=== PATIENT | female | born 1965 | race Caucasian/White ===

== ENCOUNTER 2022-09-25 18:34 | Observation (INO) | payer OTHER, SELFPAY ==
--- NOTE | ~2022-09-25 | CT_ITS ---
EXAMINATION: CT HEAD WITHOUT CONTRAST CLINICAL INFORMATION: Dizziness COMPARISON: None TECHNIQUE: Imaging was performed from the skull base to vertex without intravenous administration of contrast. This CT examination was performed using dose optimization techniques as appropriate, variously including the following: *Automated exposure control *Adjustment of mA and/or kV according to patient size (this includes techniques or standardized protocols for targeted exams where dose is matched to indication/reason for exam; i.e. extremities or head) *Use of iterative reconstruction technique Total exam dose length product: 571 mGy-cm FINDINGS: No intra or extra-axial fluid collection, hemorrhage, or mass. No ventriculomegaly. No midline shift or herniation. Basal cisterns are patent. Becker-white matter differentiation is maintained. No territorial encephalomalacia. No significant volume loss. There is no abnormal attenuation within the brain parenchyma. No calvarial fracture or soft tissue abnormality. The mastoid air cells and visualized portions of the paranasal sinuses are well aerated. CT/CT head/brain wo IV con IMPRESSION: 1. No acute intracranial pathology.
--- NOTE | ~2022-09-25 | CT_ITS ---
EXAMINATION: CT ANGIOGRAM HEAD CT ANGIOGRAM NECK CLINICAL INFORMATION: Reason for Exam dizziness, difficulty finding words COMPARISON: Same day noncontrast head CT TECHNIQUE: Initial noncontrast authorization representative imaging of the head and neck was performed. Noncontrast head CT was also performed. Test bolus sequences followed by intravenous administration 70 mL of Omnipaque 350. Helical imaging was performed in the axial plane from the aortic arch to the skull vertex. Delayed postcontrast imaging of the head was also performed. The data was processed at the marketing technologist's workstation for generation of MIP sequences. Angled MIPs and volume rendered reformatted images were also generated at an offline 3D workstation. Stenoses are assessed in accordance with NASCET criteria unless otherwise indicated. DLP: 1417 mGy-cm This CT examination was performed using dose optimization techniques as appropriate, variously including the following: *Automated exposure control. *Adjustment of mA and/or kV according to patient size (this includes techniques or standardized protocols for targeted exams where dose is matched to indication/reason for exam; i.e. extremities or head). *Use of iterative reconstruction technique. FINDINGS: CT Head: There is no evidence of acute intracranial hemorrhage or edematous territorial infarction. There is no abnormal attenuation within the brain parenchyma. Becker-white matter differentiation is preserved. The ventricles are normal in size and configuration. No evidence for obstructive hydrocephalus. No abnormal mass effect or midline shift. No extra-axial fluid collections. No pathologic intra-axial enhancement or regional oligemia. No acute soft tissue or osseous abnormalities. Small maxillary sinus mucous retention cysts. CT Neck: The thyroid gland and remaining cervical soft tissues are within normal limits. Mild multilevel cervical spondylosis CT Upper Chest: The visualized lung apices and upper mediastinum are within normal limits. Neck CTA: Aortic Arch: Normal contour and caliber. Classic 3 vessel branching pattern of the aortic arch. Great Vessel Origins: No significant stenosis of the branch origins. Right Common Carotid Artery: No focal stenosis or occlusion. Cervical Right Internal Carotid Artery: Normal opacification without focal stenosis or occlusion. Left Common Carotid Artery: No focal stenosis or occlusion. Cervical Left Internal Carotid Artery: Mild calcific atherosclerotic disease of the carotid bulb and proximal internal carotid artery without flow-limiting stenosis. Cervical Right Vertebral Artery: No focal stenosis or occlusion. Cervical Left Vertebral Artery: No focal stenosis or occlusion. Brain CTA: CTA of the head is somewhat technically limited secondary to extensive venous contamination. Intracranial Internal Carotid Arteries: No focal stenosis or occlusion. Right Anterior Cerebral Artery: Normal A1 segment. Normal opacification of the distal BENJAMIN segments. Left Anterior Cerebral Artery: Normal A1 segment. Normal opacification of the distal BENJAMIN segments. Anterior Communicating Artery: Normal. Right Middle Cerebral Artery: Normal M1 segment of the MCA without focal stenosis or occlusion. Normal arborization of the distal segments. Left Middle Cerebral Artery: Normal M1 segment of the MCA without focal stenosis or occlusion. Normal arborization of the distal segments. Right Vertebral Artery: Normal V4 segment. Left Vertebral Artery: Normal V4 segment. Basilar Artery: Normal without focal stenosis or occlusion. Normal appearance of the proximal superior cerebellar arteries. Right Posterior Cerebral Artery: Tortuous P1 segment without significant narrowing. Normal opacification of the distal RN ANGIOGRAPHY segments. Left Posterior Cerebral Artery: Normal P1 segment. Normal opacification of the distal RN ANGIOGRAPHY segments. Normal opacification of the superior sagittal, straight, transverse, and sigmoid sinuses. CT/CT angio head neck IMPRESSION: No arterial high-grade stenosis or proximal large vessel occlusion in the head or neck. CTA of the head is somewhat technically limited secondary to extensive venous contamination.
--- NOTE | ~2022-09-25 | MR_ITS ---
MRI OF THE BRAIN WITHOUT IV CONTRAST INDICATION: Question TIA. COMPARISON: Head CT and CTA head and neck September 25, 2022. TECHNIQUE: Multiplanar multisequence MR imaging of the brain was obtained without IV contrast. FINDINGS: There is no hydrocephalus, extra-axial surface collection, or herniation. The major flow voids at the skull base are preserved. There is no acute infarct on diffusion-weighted imaging. There is no intracranial hemorrhage on the gradient recalled echo acquisition. Punctate focus of chronic hemosiderin staining within the anterior right frontal white matter. The midline structures are normal. The cerebellar tonsils are normally positioned. The cerebellum and brainstem are normal. The craniocervical junction is normal. Osseous marrow signal intensity is homogenous. The visualized soft tissues are unremarkable. There are retention cysts within the maxillary sinuses bilaterally and there is mild mucosal thickening within the ethmoid air cells bilaterally. MR/MR head/brain wo con IMPRESSION: No acute intracranial findings. No acute infarcts.
--- NOTE | 2022-09-25 18:36 | ED.DIZZY ---
HPI - Dizziness General Chief Complaint: Dizziness <LILIAM Irizarry Last Filed: 09/25/22 18:43> Stated Complaint: dizzy, speech issues <LILIAM Irizarry Last Filed: 09/25/22 18:43> Time Seen by Provider: 09/25/22 18:43 <LILIAM Irizarry Last Filed: 09/25/22 18:43> Source: patient <LILIAM Enrique - Last Filed: 09/25/22 21:58> Mode of arrival: ambulatory <LILIAM Enrique Last Filed: 09/25/22 21:58> Limitations: no limitations <LILIAM Enrique Last Filed: 09/25/22 21:58> History of Present Illness HPI Narrative: This is a 57-year-old female history significant for heart murmur presents to the emergency department concerns of dizziness, headache, fatigue, malaise. Patient tells me that dizziness started at approximately 07:15 this morning has been persistent ever since. She states earlier today she also found herself having difficulty finding words and speaking. This is never happened to her before. She reports the last night she had a headache diffuse in nature without vision changes or dizziness, she took Motrin which seemed to help it a little bit however she woke up this morning with dizziness and felt like something was not right. She went to urgent care for evaluation however they advised her to come into the emergency department for further evaluation and treatment. Not on blood thinners. No head trauma. NIH stroke scale 1 <LILIAM Enrique Last Filed: 09/25/22 21:58> Related Data Home Medications: Home Medications Medication Instructions Recorded Confirmed ESTROVERA 1 tab PO DAILY 09/25/22 09/25/22 lactobacillus combination no.4 3 3,000 mmu cells PO DAILY 09/25/22 09/25/22 billion cell capsule (Probiotic) multivitamin 1 tab PO DAILY 09/25/22 09/25/22 <LILIAM Irizarry Last Filed: 09/25/22 18:43> Allergies/Adverse Reactions: Allergies Allergy/AdvReac Type Severity Reaction Status Date / Time No Known Allergies Allergy Verified 09/25/22 18:41 <LILIAM Irizarry Last Filed: 09/25/22 18:43> Review of Systems Review of Systems: Constitutional : No Weight loss, No Fever, No Chills, No Fatigue, No Malaise ENT/Mouth : No sore throat, No Rhinorrhea Eyes: No Eye Pain, No Swelling, No Redness Cardiovascular : No Chest Pain, No SOB, No Dyspnea on Exertion, No Orthopnea, No Edema, No Palpitations Respiratory : No Cough, No Sputum, No Wheezing Gastrointestinal : No Nausea, No Vomiting, No Diarrhea, No Constipation, No abdominal Pain, No Hematochezia, No Melena Genitourinary : No Dysuria, No Urinary Frequency, No Hematuria, Musculoskeletal : No joint pain, No Myalgias, No Joint Swelling Skin : No Skin Lesions, No rash Neuro : No Weakness, No Numbness, + Dizziness, + Headache Psych : No Anxiety/Panic, No Depression All other systems reviewed and are negative <LILIAM Enrique - Last Filed: 09/25/22 21:58> Yes all other systems are reviewed and are negative <LILIAM Enrique - Last Filed: 09/25/22 21:58> [facility] Past Medical History Attestation statement: The following information was validated with the patient. <LILIAM Enrique - Last Filed: 09/25/22 21:58> Source: old records reviewed and nursing notes reviewed <LILIAM Enrique - Last Filed: 09/25/22 21:58> Social History Social History: Social History Advance Directives: No Advance Directives Information Provided: No <LILIAM Irizarry - Last Filed: 09/25/22 18:43> Physical Exam Vital Signs: Vital Signs: Last Vital Signs Temp 98 F 09/25/22 18:37 Pulse 105 H 09/25/22 18:37 Resp 15 09/25/22 18:37 BP 182/80 H 09/25/22 18:37 Pulse Ox 100 09/25/22 18:37 O2 Del Method 09/25/22 18:37 BMI result Body Mass Index 25.7 <LILIAM Irizarry Last Filed: 09/25/22 18:43> Vital Signs: Last Vital Signs Temp 98 F 09/25/22 18:37 Pulse 105 H 09/25/22 18:37 Resp 15 09/25/22 18:37 BP 182/80 H 09/25/22 18:37 Pulse Ox 100 09/25/22 18:37 O2 Del Method 09/25/22 18:37 BMI result Body Mass Index 25.7 Vital signs stable <LILIAM Enrique - Last Filed: 09/25/22 21:58> Appearance: Alert.? Oriented X3.? No acute distress.? Head: Normocephalic, atraumatic, no step-offs or deformities Eyes: Pupils equal, round and reactive to light.? ENT: Pharynx normal.? Neck: Normal inspection.? Neck supple.? CVS: Normal heart rate and rhythm.? Pulses normal.? Respiratory: No respiratory distress.? Breath sounds normal.? Abdomen: Soft and nontender.? Skin: Skin warm and dry.? Normal skin color.? Normal skin turgor.? Extremities: No lower extremity edema.? No calf ttp. 5/5 strength to bilateral upper and lower extremities Back: No midline tenderness, no C-spine tenderness, full range of motion, no CVA tenderness bilaterally Neuro: Oriented X 3.? No motor deficit.? No sensory deficit. CN 2-12 intact . Ambulatory with steady gait normal coordination. Normal [id number]-uv-gese, jwow-tz-ooik. Negative Romberg and pronator drift. NIH Stroke Scale of 1, dysarthria <LILIAM Enrique - Last Filed: 09/25/22 21:58> Course Course Course Narrative: RME: This is a [id number]-female, with known heart murmur, presenting today for evaluation of dizziness since this morning at 07:15AM Patient states that last night she had a headache and took motrin. Reports that this morning she woke up this morning and has had persistent dizziness. She admits that earlier in the day she had trouble with word finding. Admits to having stressors at home. On exam, No facial droop, heel to velasquez intact. finger to nose intact. BP is 183/80. Brought back to treatment room, CT head w/o contrast, labs, ekg, covid, UA ordered. <LILIAM Irizarry - Last Filed: 09/25/22 18:43> Reevaluation(s) Reevaluation #1: CBC appears to be within normal limits. Chemistry with no acute findings requiring intervention. Coags unremarkable. Patient COVID negative. Head CT unremarkable. Head and neck CTA with no arterial high-grade stenosis or proximal large vessel occlusion in the head or neck. I did discuss this case with hospitalist who will admit patient for possible TIA. Patient's neuro exam remains unremarkable. At this time NIH stroke scale 0. Patient well-appearing. Will be admitted for further intervention and treatment. <LILIAM Enrique - Last Filed: 09/25/22 21:58> Time: :58 <LILIAM Enrique - Last Filed: 09/25/22 21:58> Medications Administered Discontinued Medications Generic Name Dose Route Start Last Admin Trade Name Freq PRN Reason Stop Dose Admin Iohexol 100 ml 09/25/22 20:53 09/25/22 20:53 Iohexol 350 Mg/Ml 100 Ml Infus..Btl IV 09/25/22 20:54 70 ml ONCE ONE Administration <LILIAM Irizarry - Last Filed: 09/25/22 18:43> Medications Administered Discontinued Medications Generic Name Dose Route Start Last Admin Trade Name Freq PRN Reason Stop Dose Admin Iohexol 100 ml 09/25/22 20:53 09/25/22 20:53 Iohexol 350 Mg/Ml 100 Ml Infus..Btl IV 09/25/22 20:54 70 ml ONCE ONE Administration <LILIAM Enrique - Last Filed: 09/25/22 21:58> Medical Decision Making Medical Decision Making [facility] Narrative: 1846 57-year-old female presents with dizziness described as room spinning, headache yesterday which has since resolved, and difficulty with word finding. Dizziness and in difficulty with word finding started approximately 745 this morning and has been worsening ever since. Physical examination benign. Normal cerebellar function. NIH stroke scale of 1 due to dysarthria. Concerns for possible TIA versus stroke. Unlikely intracranial hemorrhage or cerebellar infarct/posterior stroke. Other differentials include complex migraine, vertigo, stress reaction. Symptoms started at 07:45 therefore not a candidate for tPA. Plan at this time CT of the head, CTA, basic labs, urine, cardiac monitoring. <LILIAM Enrique - Last Filed: 09/25/22 21:58> Differential Diagnosis Differential Diagnoses: The differential diagnosis associated with the presentation includes <LILIAM Enrique - Last Filed: 09/25/22 21:58> Concerns for possible TIA versus stroke. Unlikely intracranial hemorrhage or cerebellar infarct/posterior stroke. Other differentials include complex migraine, vertigo, stress reaction. <LILIAM Enrique - Last Filed: 09/25/22 21:58> Admission/Observation Consideration of admission/observation: Escalation of care including admission/observation considered <LILIAM Enrique - Last Filed: 09/25/22 21:58> [facility] admission <LILIAM Enrique - Last Filed: 09/25/22 21:58> Lab Data MDM Lab Attestation statement: I reviewed the patient's lab results. <LILIAM Enrique - Last Filed: 09/25/22 21:58> Result Diagrams: 09/25/22 19:08 09/25/22 19:08 <LILIAM Irizarry - Last Filed: 09/25/22 18:43> Labs: Lab Results 09/25/22 09/25/22 09/25/22 Range/Units 19:08 19:08 19:08 WBC 6.0 (4.8-10.8) X10*3/uL RBC 4.26 (4.20-5.50) X10*6/uL Hgb 13.2 (12.0-16.0) g/dl Hct 39.1 (37.0-47.0) % MCV 91.8 (80.0-98.0) fL MCH 31.0 (27.0-33.0) pg MCHC 33.8 (31.0-35.0) g/dl RDW 12.7 (11.0-16.0) % Plt Count 278 (160-400) X10*3/uL MPV 9.4 (9.4-12.3) fL Immature Gran % (Auto) 0.2 (0.0-0.4) % Neut % (Auto) 44.1 L (45-73) % Lymph % (Auto) 45.0 H (20-40) % [place] % (Auto) 7.1 (2-11) % Eos % (Auto) 3.1 (0-4) % Baso % (Auto) 0.5 (0-2) % Lymph # (Auto) 2.7 (1.2-4.9) X10*3/uL [place] # (Auto) 0.4 (0.1-1.2) X10*3/uL Eos # (Auto) 0.2 (0.0-0.4) X10*3/uL Baso # (Auto) 0.0 (0.0-0.2) X10*3/uL Abs Immat Gran (auto) 0.01 (0.00-0.03) X10*3/uL Absolute Neuts (auto) 2.7 (2.0-8.3) x10*3/uL Absolute Nucleated RBC 0.000 (0.0-0.012) X10*3/uL Nucleated RBC % (auto) 0.0 (0.0-0.2) /100WBC PT (10.0-13.1) SEC INR (0.9-1.1) APTT 32.0 (26.0-36.4) SEC Sodium 143 (135-145) mmol/L Potassium 4.5 (3.3-5.1) mmol/L Chloride 106 (96-108) mmol/L Carbon Dioxide 29 (22-29) mmol/L Anion Gap 13 (12-20) BUN 20 H (9-16) mg/dL Creatinine 1.01 (0.5-1.4) mg/dL Estim Creat Clear Calc 56.7 Estimated GFR 57 Random Glucose 99 (60-115) mg/dL Calcium 9.5 (8.4-10.2) mg/dL Magnesium 2.1 (1.6-2.6) mg/dL Total Bilirubin 0.3 (0.0-1.0) mg/dL Direct Bilirubin < 0.2 (0.0-0.5) mg/dL AST 17 (5-31) U/L ALT 19 (0-31) U/L Alkaline Phosphatase 82 (39-117) U/L Total Protein 7.1 (6.5-8.0) g/dL Albumin 4.4 (3.5-5.0) g/dL COVID-19 (ALESSIO) (Negative) COVID-19 Clin Com 09/25/22 09/25/22 Range/Units 19:08 19:10 WBC (4.8-10.8) X10*3/uL RBC (4.20-5.50) X10*6/uL Hgb (12.0-16.0) g/dl Hct (37.0-47.0) % MCV (80.0-98.0) fL MCH (27.0-33.0) pg MCHC (31.0-35.0) g/dl RDW (11.0-16.0) % Plt Count (160-400) X10*3/uL MPV (9.4-12.3) fL Immature Gran % (Auto) (0.0-0.4) % Neut % (Auto) (45-73) % Lymph % (Auto) (20-40) % [place] % (Auto) (2-11) % Eos % (Auto) (0-4) % Baso % (Auto) (0-2) % Lymph # (Auto) (1.2-4.9) X10*3/uL [place] # (Auto) (0.1-1.2) X10*3/uL Eos # (Auto) (0.0-0.4) X10*3/uL Baso # (Auto) (0.0-0.2) X10*3/uL Abs Immat Gran (auto) (0.00-0.03) X10*3/uL Absolute Neuts (auto) (2.0-8.3) x10*3/uL Absolute Nucleated RBC (0.0-0.012) X10*3/uL Nucleated RBC % (auto) (0.0-0.2) /100WBC PT 10.6 (10.0-13.1) SEC INR 0.9 (0.9-1.1) APTT (26.0-36.4) SEC Sodium (135-145) mmol/L Potassium (3.3-5.1) mmol/L Chloride (96-108) mmol/L Carbon Dioxide (22-29) mmol/L Anion Gap (12-20) BUN (9-16) mg/dL Creatinine (0.5-1.4) mg/dL Estim Creat Clear Calc Estimated GFR Random Glucose (60-115) mg/dL Calcium (8.4-10.2) mg/dL Magnesium (1.6-2.6) mg/dL Total Bilirubin (0.0-1.0) mg/dL Direct Bilirubin (0.0-0.5) mg/dL AST (5-31) U/L ALT (0-31) U/L Alkaline Phosphatase (39-117) U/L Total Protein (6.5-8.0) g/dL Albumin (3.5-5.0) g/dL COVID-19 (ALESSIO) Negative (Negative) COVID-19 Clin Com See Note <LILIAM Irizarry - Last Filed: 09/25/22 18:43> Lab Results 09/25/22 09/25/22 09/25/22 Range/Units 19:08 19:08 19:08 WBC 6.0 (4.8-10.8) X10*3/uL RBC 4.26 (4.20-5.50) X10*6/uL Hgb 13.2 (12.0-16.0) g/dl Hct 39.1 (37.0-47.0) % MCV 91.8 (80.0-98.0) fL MCH 31.0 (27.0-33.0) pg MCHC 33.8 (31.0-35.0) g/dl RDW 12.7 (11.0-16.0) % Plt Count 278 (160-400) X10*3/uL MPV 9.4 (9.4-12.3) fL Immature Gran % (Auto) 0.2 (0.0-0.4) % Neut % (Auto) 44.1 L (45-73) % Lymph % (Auto) 45.0 H (20-40) % [place] % (Auto) 7.1 (2-11) % Eos % (Auto) 3.1 (0-4) % Baso % (Auto) 0.5 (0-2) % Lymph # (Auto) 2.7 (1.2-4.9) X10*3/uL [place] # (Auto) 0.4 (0.1-1.2) X10*3/uL Eos # (Auto) 0.2 (0.0-0.4) X10*3/uL Baso # (Auto) 0.0 (0.0-0.2) X10*3/uL Abs Immat Gran (auto) 0.01 (0.00-0.03) X10*3/uL Absolute Neuts (auto) 2.7 (2.0-8.3) x10*3/uL Absolute Nucleated RBC 0.000 (0.0-0.012) X10*3/uL Nucleated RBC % (auto) 0.0 (0.0-0.2) /100WBC PT (10.0-13.1) SEC INR (0.9-1.1) APTT 32.0 (26.0-36.4) SEC Sodium 143 (135-145) mmol/L Potassium 4.5 (3.3-5.1) mmol/L Chloride 106 (96-108) mmol/L Carbon Dioxide 29 (22-29) mmol/L Anion Gap 13 (12-20) BUN 20 H (9-16) mg/dL Creatinine 1.01 (0.5-1.4) mg/dL Estim Creat Clear Calc 56.7 Estimated GFR 57 Random Glucose 99 (60-115) mg/dL Calcium 9.5 (8.4-10.2) mg/dL Magnesium 2.1 (1.6-2.6) mg/dL Total Bilirubin 0.3 (0.0-1.0) mg/dL Direct Bilirubin < 0.2 (0.0-0.5) mg/dL AST 17 (5-31) U/L ALT 19 (0-31) U/L Alkaline Phosphatase 82 (39-117) U/L Total Protein 7.1 (6.5-8.0) g/dL Albumin 4.4 (3.5-5.0) g/dL COVID-19 (ALESSIO) (Negative) COVID-19 Clin Com 09/25/22 09/25/22 Range/Units 19:08 19:10 WBC (4.8-10.8) X10*3/uL RBC (4.20-5.50) X10*6/uL Hgb (12.0-16.0) g/dl Hct (37.0-47.0) % MCV (80.0-98.0) fL MCH (27.0-33.0) pg MCHC (31.0-35.0) g/dl RDW (11.0-16.0) % Plt Count (160-400) X10*3/uL MPV (9.4-12.3) fL Immature Gran % (Auto) (0.0-0.4) % Neut % (Auto) (45-73) % Lymph % (Auto) (20-40) % [place] % (Auto) (2-11) % Eos % (Auto) (0-4) % Baso % (Auto) (0-2) % Lymph # (Auto) (1.2-4.9) X10*3/uL [place] # (Auto) (0.1-1.2) X10*3/uL Eos # (Auto) (0.0-0.4) X10*3/uL Baso # (Auto) (0.0-0.2) X10*3/uL Abs Immat Gran (auto) (0.00-0.03) X10*3/uL Absolute Neuts (auto) (2.0-8.3) x10*3/uL Absolute Nucleated RBC (0.0-0.012) X10*3/uL Nucleated RBC % (auto) (0.0-0.2) /100WBC PT 10.6 (10.0-13.1) SEC INR 0.9 (0.9-1.1) APTT (26.0-36.4) SEC Sodium (135-145) mmol/L Potassium (3.3-5.1) mmol/L Chloride (96-108) mmol/L Carbon Dioxide (22-29) mmol/L Anion Gap (12-20) BUN (9-16) mg/dL Creatinine (0.5-1.4) mg/dL Estim Creat Clear Calc Estimated GFR Random Glucose (60-115) mg/dL Calcium (8.4-10.2) mg/dL Magnesium (1.6-2.6) mg/dL Total Bilirubin (0.0-1.0) mg/dL Direct Bilirubin (0.0-0.5) mg/dL AST (5-31) U/L ALT (0-31) U/L Alkaline Phosphatase (39-117) U/L Total Protein (6.5-8.0) g/dL Albumin (3.5-5.0) g/dL COVID-19 (ALESSIO) Negative (Negative) COVID-19 Clin Com See Note <LILIAM Enrique - Last Filed: 09/25/22 21:58> Radiology Impression Discussion of test interpretation with radiology: I have reviewed the radiologist's reading. <LILIAM Enrique - Last Filed: 09/25/22 21:58> Core Measures AMI core measures followed: Yes <LILIAM Enrique - Last Filed: 09/25/22 21:58> Measure exclusions: not indicated <LILIAM Enrique - Last Filed: 09/25/22 21:58> Critical Care Time Critical Care Time Critical Care Time: No <LILIAM Enrique - Last Filed: 09/25/22 21:58> Discharge Plan Discharge Clinical Impression: Brain TIA <LILIAM Irizarry - Last Filed: 09/25/22 18:43> Patient Disposition: Admitted As Inpatient <LILIAM Irizarry - Last Filed: 09/25/22 18:43>
[2022-09-25 18:37] VITALS: BP 182/80; PULSE 105; RESP 15; TEMP 36.6; O2SAT 100; BMI 25.7
--- NOTE | 2022-09-25 18:41 | ECG_ITS ---
Test Reason : DIZZINESS Blood Pressure : / mmHG Vent. Rate : 071 BPM Atrial Rate : 071 BPM P-R Int : 154 ms QRS Dur : 082 ms QT Int : 372 ms P-R-T Axes : 052 010 034 degrees QTc Int : 404 ms Normal sinus rhythm Normal ECG No previous ECGs available Referred By: Radhika Larkin Electronically Signed By:SANA CLINE
[2022-09-25 19:13] LABS: MANUAL DIFF FLAG NO
[2022-09-25 19:29] LABS: Basophils Percent Auto 0.5 % (0-2); Eosinophils Absolute Auto 0.2 X10*3/uL (0.0-0.4); Eosinophils Percent Auto 3.1 % (0-4); Hematocrit 39.1 % (37.0-47.0); Hemoglobin 13.2 g/dl (12.0-16.0); Imm Gran Abs Auto 0.01 X10*3/uL (0.00-0.03); Imm Gran Pct Auto 0.2 % (0.0-0.4); Lymphocytes Absolute Auto 2.7 X10*3/uL (1.2-4.9); Mean Corpuscular HGB Conc 33.8 g/dl (31.0-35.0); Mean Corpuscular Volume 91.8 fL (80.0-98.0); Mean Platelet Volume 9.4 fL (9.4-12.3); Monocytes Absolute Auto 0.4 X10*3/uL (0.1-1.2); Monocytes Percent Auto 7.1 % (2-11); Neutrophils Absolute Auto 2.7 x10*3/uL (2.0-8.3); Neutrophils Percent Auto 44.1 % (45-73); Platelet Count 278 X10*3/uL (160-400); Red Blood Count 4.26 X10*6/uL (4.20-5.50); Red Cell Distribution Width 12.7 % (11.0-16.0)
[2022-09-25 19:32] LABS: Alanine Aminotransferase 19 U/L (0-31); Albumin Level 4.4 g/dL (3.5-5.0); Alkaline Phosphatase 82 U/L (39-117); Anion Gap 13 (12-20); Aspartate Amino Transferase 17 U/L (5-31); Bilirubin Direct < 0.2 mg/dL (0.0-0.5); Bilirubin Total 0.3 mg/dL (0.0-1.0); Blood Urea Nitrogen 20 mg/dL (9-16); Calcium 9.5 mg/dL (8.4-10.2); Carbon Dioxide 29 mmol/L (22-29); Chloride 106 mmol/L (96-108); Creatinine Clr Calc Pharmacy 56.7; Estimated Glomerular Filt Rate 57; Glucose Random 99 mg/dL (60-115); Magnesium 2.1 mg/dL (1.6-2.6); Potassium 4.5 mmol/L (3.3-5.1); Sodium 143 mmol/L (135-145); Total Protein 7.1 g/dL (6.5-8.0)
[2022-09-25 19:34] LABS: COVID-19 Test Negative (Negative); IDNOW Serial# 16C4AD1C
[2022-09-25 19:35] LABS: INTERNATIONAL NORM RATIO 0.9 (0.9-1.1); Prothrombin Time 10.6 SEC (10.0-13.1)
--- NOTE | 2022-09-25 20:05 | P.HPHOSP_ITS ---
History of Present Illness Date of Service: 09/25/22 Attending physician on admission: Jefry Mora Chief Complaint: Dizziness Pt is a 57-year-old female with no significant PMH not on any home prescription medication who presents to the ED with?dizziness and dysarthria. Patient was in normal state of health until yesterday evening when she developed a headache. When patient woke this morning at 07:15 she no longer had a headache but was dizzy, feeling like the room was spinning. States this was positional: Moving head from side to side exacerbated dizziness. Notes when she went to walk to the bathroom felt ?off balance , falling to her right side where she had to prop herself up against the wall. Patient has experienced vertigo in the past a handful of times which was relieved with decongestants; patient took Benadryl today to no effect. Patient states she continued to feel dizzy during the day but symptoms worsened when she was on a conference call around 09:00 o'clock when she knows she was having trouble finding words and saying the ?right? word. Patient then went to the urgent care where she again displayed dysarthria. Urgent care told her to come to the ED for further evaluation. The patient states she is currently still experiencing dizziness, though much less severe. Still positional with head movement from side to side, worse with closing eyes. Patient no longer exhibiting dysarthria. Denies any facial droop or hemiparesis. Patient denies chest pain/pressure, palpitations. No shortness of breath. Denies fever, chill, nausea, vomiting, abdominal pain. No change in bowel or bladder habits. In the ED tachycardic at 105 and hypertensive at 182/80. Labs were unremarkable. CT?of head showed no acute intracranial pathology. CTA pending. EKG showed normal sinus rhythm without evidence of ST elevations or depressions. Pt will be admitted to the hospital on observation for further evaluation for possible TIA. Review of Systems Review of Systems: Headache Dizziness x1 day Dysarthria Denies hemiparesis No facial droop Denies palpitations Yes all other systems are reviewed and are negative REPLACED BY [facility] Social History Household Members: Spouse Housing: House Do you presently have visiting nurse or other home services: No Alcohol intake: never Patient Tobacco Use Status: Never used Tobacco Smoked in Last 30 Days: No Use of substances other than those prescribed or required for medical reasons: No Currently Displaying Signs/Symptoms of Drug Intoxication Withdrawal: No Have you been hit, kicked, punched, or otherwise hurt by someone within the past year? If so, by whom?: No Do you feel safe in your current relationship?: Yes Is there a partner from a previous relationship who is making you feel unsafe now?: No Are you made to feel afraid or neglected: No Spiritual Healthcare Practices: Protestant Advance Directives: No Advance Directives Information Provided: No Do you have thoughts of harming others: None Do you have a plan to hurt others: No Plan Recently lost weight without trying: No Eating poorly because of decreased appetite: No Patient : No : No Poor oral hygiene: No service: No Current occupational status: employed Meds Allergies Allergy/AdvReac Type Severity Reaction Status Date / Time No Known Allergies Allergy Verified 09/25/22 18:41 Active Medications: Current Medications Pharmacy Consult (Consult Rx Perform Med Rec) 1 each MISCELLANE ONCE PRN PRN Reason: Consult order Home Medications Medication Instructions Recorded Confirmed Last Taken Type ESTROVERA 1 tab PO DAILY 09/25/22 09/25/22 09/25/22 History lactobacillus combination no.4 3 3,000 mmu cells PO DAILY 09/25/22 09/25/22 09/25/22 History billion cell capsule (Probiotic) multivitamin 1 tab PO DAILY 09/25/22 09/25/22 09/25/22 History Physical Exam Vital Signs and Narrative: Vital Signs: Last Vital Signs Temp 98 F 09/25/22 18:37 Pulse 105 H 09/25/22 18:37 Resp 15 09/25/22 18:37 BP 182/80 H 09/25/22 18:37 Pulse Ox 100 09/25/22 18:37 O2 Del Method 09/25/22 18:37 BMI result Body Mass Index 25.7 Constitutional: Alert, in no acute distress. Mental Status: Oriented to person, place and time. Eyes: Pupils are equal, round, and reactive to light. Ear, Nose, and Throat: Oropharynx clear, mucous membranes moist. Ears and nose without deformities. Trachea midline. Respiratory: Clear to auscultation bilaterally. No wheezing, rales, or rhonchi. Cardiovascular: S1, S2 regular. No murmurs, rubs, or gallops. Gastrointestinal: Abdomen soft, non-tender, non-distended. Normal bowel sounds. Neurologic: Cranial nerves II-XII are grossly intact. No focal neurological deficits. Moves all extremities spontaneously. Skin: No rashes or lesions noted. Musculoskeletal: No cyanosis or clubbing. Extremities: No edema. Psychiatric: Normal mood and affect. Results Labs 09/25/22 19:08 09/25/22 19:08 Labs: Laboratory Results - last 24 hr 09/25/22 09/25/22 09/25/22 19:08 19:08 19:08 MCV 91.8 MCH 31.0 MCHC 33.8 RDW 12.7 Plt Count 278 MPV 9.4 Immature Gran % (Auto) 0.2 Neut % (Auto) 44.1 L Lymph % (Auto) 45.0 H [place] % (Auto) 7.1 Eos % (Auto) 3.1 Baso % (Auto) 0.5 Lymph # (Auto) 2.7 [place] # (Auto) 0.4 Eos # (Auto) 0.2 Baso # (Auto) 0.0 Abs Immat Gran (auto) 0.01 Absolute Neuts (auto) 2.7 Absolute Nucleated RBC 0.000 Nucleated RBC % (auto) 0.0 PT INR APTT 32.0 Anion Gap 13 Estim Creat Clear Calc 56.7 Estimated GFR 57 Random Glucose 99 Calcium 9.5 Magnesium 2.1 Total Bilirubin 0.3 Direct Bilirubin < 0.2 AST 17 ALT 19 Alkaline Phosphatase 82 Total Protein 7.1 Albumin 4.4 COVID-19 (ALESSIO) COVID-19 Clin Com 09/25/22 09/25/22 19:08 19:10 MCV MCH MCHC RDW Plt Count MPV Immature Gran % (Auto) Neut % (Auto) Lymph % (Auto) [place] % (Auto) Eos % (Auto) Baso % (Auto) Lymph # (Auto) [place] # (Auto) Eos # (Auto) Baso # (Auto) Abs Immat Gran (auto) Absolute Neuts (auto) Absolute Nucleated RBC Nucleated RBC % (auto) PT 10.6 INR 0.9 APTT Anion Gap Estim Creat Clear Calc Estimated GFR Random Glucose Calcium Magnesium Total Bilirubin Direct Bilirubin AST ALT Alkaline Phosphatase Total Protein Albumin COVID-19 (ALESSIO) Negative COVID-19 Clin Com See Note Imaging Radiologist's Impressions: Impressions Head CT 09/25/22 18:52 IMPRESSION: 1. No acute intracranial pathology. Assessment and Plan (1) Dysarthria: Status: Acute (2) Dizziness: Status: Acute Plan Pt is a 57-year-old female with no significant PMH not on any home prescription medication who presents to the ED with?dizziness and dysarthria. Pt will be admitted to the hospital on observation for further evaluation for possible TIA. Question of TIA Patient with dizziness, dysarthria Question TIA versus vertigo Patient seemingly back to baseline with no focal deficits CT of head found no acute intracranial pathology CTA pending MRI of head/brain wo contrast Lipid panel Aspirin 81mg Neurology consult Admit to telemetry Full Code Attending:?Dr. Mora DVT Prophylaxis: Patient ambulatory Pt will be admitted to the hospital on observation for further evaluation for possible TIA. Time Spent With Patient Time: Total time managing care of this patient today ____ minutes. Quality Stroke Does the patient have a stroke diagnosis?: No Reason for No Anti-thrombotic by Day Two: Not indicated (Pt back to baseline and outside tPA therapeutic window, last well-time yesterday.) VTE Prior VTE?: No VTE Risk Level:: Medical - low VTE Device Contraindication: Treatment Not Indicated VTE Drug Contraindication: Treatment Not Indicated
--- NOTE | 2022-09-25 20:42 | PHA.MEDREC ---
Pharmacy Consult ? Medication Reconciliation Pharmacy has completed the medication reconciliation. Patient only takes otc supplements. No prescription maintenance medications.
[2022-09-25] MEDS: iohexoL 350 MG/ML 100 ML INFUS..BTL IV (20:53)
[2022-09-25 22:18] VITALS: BP 138/67; PULSE 77; RESP 18; O2SAT 96
[2022-09-25] MEDS: Aspirin Enteric Coated 81 MG TABLET.DR PO (22:34)
--- NOTE | 2022-09-25 22:38 | PC.NURSE ---
continues to deny dzziness. has slight headache which she reported as well around 7pm. medicated for the same. awaits bed on [facility]. no unilat neuro deficits at 7pas well as now.
[2022-09-26 00:40] VITALS: BP 143/63; PULSE 76; RESP 20; TEMP 36.6; O2SAT 97
[2022-09-26 00:47] VITALS: BMI 26.9
[2022-09-26 04:00] VITALS: BP 111/59; PULSE 68; RESP 20; TEMP 35.9; O2SAT 97
[2022-09-26] MEDS: Acetaminophen 325 MG TABLET 650 MG PO ×2 (05:01→11:42)
[2022-09-26 07:04] VITALS: BP 152/64; PULSE 85; RESP 20; TEMP 36.3; O2SAT 96
[2022-09-26 08:00] LABS: Cholesterol 274 mg/dL; HDL Cholesterol 56 mg/dL; LDL Cholesterol Calculated 202 mg/dl; Triglycerides 83 mg/dL
[2022-09-26] MEDS: 0.9 % Sodium Chloride Flush 3 ML SYRINGE IVFLUSH (08:08)
--- NOTE | 2022-09-26 09:43 | MHC.CM.PN ---
JULIET DELIVERED PT LIVES WITH SP[facility] IN A [facility]. NO DME OR SERVICES . PT IS EMPLOYED. +HCP AT HOME +COVID VAX X2 WITH [facility]. PCP DR. HAGAN AT [facility] AM. DP: HOME, NO SERVICES ANTICIPATED. [facility] WILL TRANSPORT
[2022-09-26 11:01] VITALS: BP 113/56; PULSE 75; RESP 20; TEMP 36.8; O2SAT 95
--- NOTE | 2022-09-26 11:58 | PM.NEUROCN ---
History of Present Illness Data of Consult Service Date: 09/26/22 Primary Care Provider: Gilbert Carreon MD [facility] Reason for consult: Difficulty speaking 57 years old woman who came to hospital stating that yesterday she woke up and was dizzy. It was like things were spinning. This continued most of the day and then later she developed a headache. She had a similar headache the day before. Pain was bilateral front and back of the head and neck. Later she also had difficulty speaking leg the words were not coming out and she came to hospital for suspicion of stroke. Now she was feeling better. Review of Systems Review of Systems: No cold or flu-like illness PMFSH Social History Social History Household Members: Spouse Housing: House Do you presently have visiting nurse or other home services: No Alcohol intake: never Patient Tobacco Use Status: Never used Tobacco Smoked in Last 30 Days: No Use of substances other than those prescribed or required for medical reasons: No Currently Displaying Signs/Symptoms of Drug Intoxication Withdrawal: No Have you been hit, kicked, punched, or otherwise hurt by someone within the past year? If so, by whom?: No Do you feel safe in your current relationship?: Yes Is there a partner from a previous relationship who is making you feel unsafe now?: No Are you made to feel afraid or neglected: No Spiritual Healthcare Practices: Yarsani Advance Directives: No Advance Directives Information Provided: No Do you have thoughts of harming others: None Do you have a plan to hurt others: No Plan Recently lost weight without trying: No Eating poorly because of decreased appetite: No Patient : No : No Poor oral hygiene: No service: No Current occupational status: employed Meds Allergies Allergy/AdvReac Type Severity Reaction Status Date / Time No Known Allergies Allergy Verified 09/25/22 18:41 Active Medications: Current Medications Acetaminophen (Acetaminophen 325 Mg Tablet) 650 mg PO Q6H PRN PRN Reason: Pain, Mild (Pain Scale 1-3) Last Admin: 09/26/22 11:42 Dose: 650 mg Docusate Sodium (Docusate Sodium 100 Mg Capsule) 100 mg PO DAILY PRN PRN Reason: Constipation Ondansetron HCl (Ondansetron Hcl 4 Mg/2 Ml Vial) 4 mg IVPUSH Q8H PRN PRN Reason: Nausea and Vomiting Pharmacy Consult (Consult Rx Perform Med Rec) 1 each MISCELLANE ONCE PRN PRN Reason: Consult order Sodium Chloride (0.9 % Sodium Chloride Flush 3 Ml Syringe) 3 ml IVFLUSH QSHIFT [facility] Last Admin: 09/26/22 08:08 Dose: 3 ml Home Medications Medication Instructions Recorded Confirmed Last Taken Type ESTROVERA 1 tab PO DAILY 09/25/22 09/25/22 09/25/22 History lactobacillus combination no.4 3 3,000 mmu cells PO DAILY 09/25/22 09/25/22 09/25/22 History billion cell capsule (Probiotic) multivitamin 1 tab PO DAILY 09/25/22 09/25/22 09/25/22 History Physical Exam Vital Signs: Vital Signs: Last Vital Signs Temp 98.3 F 09/26/22 11:01 Pulse 75 09/26/22 11:01 Resp 20 09/26/22 11:01 BP 113/56 L 09/26/22 11:01 Pulse Ox 95 09/26/22 11:01 O2 Del Method 09/26/22 11:01 BMI result Body Mass Index 26.9 Neuro: Other: Alert and awake with normal spontaneity of speech fluency comprehension and anxious affect. Face was symmetrical. Tongue was midline. There was no pronator drift. Deep tendon reflexes 1+ with flexor plantars. Speech and language were normal. Results Labs 09/25/22 19:08 09/25/22 19:08 Labs: Short CBC 09/25/22 Range/Units 19:08 WBC 6.0 (4.8-10.8) X10*3/uL Hgb 13.2 (12.0-16.0) g/dl Hct 39.1 (37.0-47.0) % Plt Count 278 (160-400) X10*3/uL BMP 09/25/22 19:08 Sodium 143 Potassium 4.5 Chloride 106 Carbon Dioxide 29 BUN 20 H Creatinine 1.01 Calcium 9.5 Liver Function 09/25/22 Range/Units 19:08 Total Bilirubin 0.3 (0.0-1.0) mg/dL Direct Bilirubin < 0.2 (0.0-0.5) mg/dL AST 17 (5-31) U/L ALT 19 (0-31) U/L Alkaline Phosphatase 82 (39-117) U/L Albumin 4.4 (3.5-5.0) g/dL Noncontrast MRI of brain did not reveal any significant acute or chronic abnormality. Assessment and Plan (1) Migraine equivalent syndrome: Status: Acute 57 years old woman with migraine and associated symptomatology resulting in dizziness word ago and difficulty speaking. She was reassured and educated and at this time I would suggest starting her on topiramate 25 mg at night for migraine control. Time Spent With Patient Time: Total time managing care of this patient today ____ minutes. Procedures Date of Service Date of Service: 09/26/22
[2022-09-26 15:09] VITALS: BP 137/63; PULSE 72; RESP 20; TEMP 36.9; O2SAT 91
--- NOTE | 2022-09-26 16:59 | P.DS_ITS ---
DS: Providers Provider Date of Service: 09/26/22 Date of admission: 09/25/22 20:50 Date of discharge: 09/26/22 Primary care physician: Gilbert Carreon MD Consults: 09/25/22 20:54 Consult to Neurology Routine Consulting Provider: [facility] Reason for consultation: Dysarthria, ?TIA Attending physician on discharge: Parker Childers Discharging clinician: Monica Fisher DS: Diagnosis Discharge Diagnosis (1) Migraine equivalent syndrome: Status: Acute DS: Summary Hospital Course Hospital Course: Admission H&P: Pt is a 57-year-old female with no significant PMH not on any home prescription medication who presents to the ED with?dizziness and dysarthria.? Patient was in normal state of health until yesterday evening when she developed a headache.? When patient woke this morning at 07:15 she no longer had a headache but was dizzy, feeling like the room was spinning.? States this was positional:? Moving head from side to side exacerbated dizziness.? Notes when she went to walk to the bathroom felt ?off balance , falling to her right side where she had to prop herself up against the wall.? Patient has experienced vertigo in the past a handful of times which was relieved with decongestants; patient took Benadryl today to no effect.? Patient states she continued to feel dizzy during the day but symptoms worsened when she was on a conference call around 09:00 o'clock when she knows she was having trouble finding words and saying the ?right? word.? Patient then went to the urgent care where she again displayed dysarthria.? Urgent care told her to come to the ED for further evaluation.? The patient states she is currently still experiencing dizziness, though much less severe.? Still positional with head movement from side to side, worse with closing eyes.? Patient no longer exhibiting dysarthria.? Denies any facial droop or hemiparesis. Patient denies chest pain/pressure, palpitations.? No shortness of breath.? Denies fever, chill, nausea, vomiting, abdominal pain.? No change in bowel or bladder habits. In the ED tachycardic at 105 and hypertensive at 182/80. Labs were unremarkable. CT?of head showed no acute intracranial pathology.? CTA pending. EKG showed normal sinus rhythm without evidence of ST elevations or depressions. Pt will be admitted to the hospital on observation for further evaluation for possible TIA. Hospital Course: Patient's CTA showed no arterial high-grade stenosis or proximal large vessel occlusion in the head or neck. MRI showed no acute intracranial findings and no acute infarcts. Lipid panel showed triglycerides of 83, total cholesterol of 274, LDL cholesterol 202, and HDL cholesterol of 56. Patient had no acute complaints overnight. Dizziness resolved, though headache remains. Patient seen and evaluated by Neurology who reassured patient that she likely did not have a TIA, and diagnosed her with migraine equivalent syndrome and suggested starting her on topiramate 25 mg at night for migraine prophylaxis. Patient currently complains only of a mild headache for which she took Tylenol twice today to no effect. Patient denies chest pain/pressure, palpitations. No shortness of breath. No abdominal pain. Denies vision changes, difficulty speaking, numbness and tingling and weakness in extremities. Patient is agreeable to discharge at this time. Patient knows to return to the ED if she experiences one-sided facial droop, numbness/tingling/weakness, difficulty speaking. Status at Discharge Functional status at discharge: independent ambulation Time Spent with Patient Time attestation: Total time managing care of this patient today ____ minutes. Discharge coordination time: Greater than 30 minutes Specific discharge activities: Resume all activities as tolerated. Quality: Safe Use of Opioids Does Pt have an Active Cancer Diagnosis on the Problem List?: No Quality: Stroke Does the patient have a stroke diagnosis?: No Physical Exam Vital Signs: Vital Signs: Last Vital Signs Temp 98.4 F 09/26/22 15:09 Pulse 72 09/26/22 15:09 Resp 20 09/26/22 15:09 BP 137/63 09/26/22 15:09 Pulse Ox 91 L 09/26/22 15:09 O2 Del Method 09/26/22 15:09 BMI result Body Mass Index 26.9 General: AOx3, no acute distress Resp: CTA bilaterally CVS: S1, S2, RRR GI: +BS, NT, no distention Skin: No rash Neuro: Cranial nerves II-XII grossly intact. Motor grossly intact Extremities: No edema Psych: Appropriate affect DS: Data Data Completed and Pending Labs on day of discharge: Laboratory Results - last 24 hr 09/25/22 09/25/22 09/25/22 19:08 19:08 19:08 WBC 6.0 RBC 4.26 Hgb 13.2 Hct 39.1 MCV 91.8 MCH 31.0 MCHC 33.8 RDW 12.7 Plt Count 278 MPV 9.4 Immature Gran % (Auto) 0.2 Neut % (Auto) 44.1 L Lymph % (Auto) 45.0 H Emery % (Auto) 7.1 Eos % (Auto) 3.1 Baso % (Auto) 0.5 Lymph # (Auto) 2.7 Emery # (Auto) 0.4 Eos # (Auto) 0.2 Baso # (Auto) 0.0 Abs Immat Gran (auto) 0.01 Absolute Neuts (auto) 2.7 Absolute Nucleated RBC 0.000 Nucleated RBC % (auto) 0.0 PT INR APTT 32.0 Sodium 143 Potassium 4.5 Chloride 106 Carbon Dioxide 29 Anion Gap 13 BUN 20 H Creatinine 1.01 Estim Creat Clear Calc 56.7 Estimated GFR 57 Random Glucose 99 Calcium 9.5 Magnesium 2.1 Total Bilirubin 0.3 Direct Bilirubin < 0.2 AST 17 ALT 19 Alkaline Phosphatase 82 Total Protein 7.1 Albumin 4.4 Triglycerides Cholesterol LDL Cholesterol, Calc HDL Cholesterol COVID-19 (ALESSIO) COVID-19 [employer] Pre[employer] 09/25/22 09/25/22 09/26/22 19:08 19:10 07:12 WBC RBC Hgb Hct MCV MCH MCHC RDW Plt Count MPV Immature Gran % (Auto) Neut % (Auto) Lymph % (Auto) Emery % (Auto) Eos % (Auto) Baso % (Auto) Lymph # (Auto) Emery # (Auto) Eos # (Auto) Baso # (Auto) Abs Immat Gran (auto) Absolute Neuts (auto) Absolute Nucleated RBC Nucleated RBC % (auto) PT 10.6 INR 0.9 APTT Sodium Potassium Chloride Carbon Dioxide Anion Gap BUN Creatinine Estim Creat Clear Calc Estimated GFR Random Glucose Calcium Magnesium Total Bilirubin Direct Bilirubin AST ALT Alkaline Phosphatase Total Protein Albumin Triglycerides 83 Cholesterol 274 LDL Cholesterol, Calc 202 HDL Cholesterol 56 COVID-19 (ALESSIO) Negative COVID-19 Clin Com See Note Discharge Plan Discharge Patient Disposition: Home, Self-Care Discharge Diagnosis: Migraine equivalent syndrome Referrals: Gilbert Carreon MD [Primary Care Provider] - 1 Week Discharge Medications: New topiramate 25 mg capsule,sprinkle,ER 24hr 25 mg PO DAILY Qty: 30 0RF Rx Instructions: Take one pill daily for first 7 days, then take 2 pills daily for migraine headache prophylaxis Continued multivitamin Tablet 1 tab PO DAILY Probiotic 3 billion cell Capsule 3,000 mmu cells PO DAILY Rx Instructions: administer with a meal ESTROVERA 1 tab PO DAILY Discharge Orders: Discharge Order (Routine); Ordered 09/26/22 Ordered By: Monica Fisher Activity on Discharge: As tolerated Stand Alone Forms: Patient Portal Discharge page Care Plan Goals: Resume all home meds Migraine headache and dizziness prophylaxis Health Concerns: Monitor for signs of one-sided numbness and tingling, weakness, facial droop Monitor for difficulty speaking or slurred speech Plan of Treatment: Take Topirimate as directed, 25mg daily for one week, then 50mg daily F/U with PCP in 2 weeks Assessment: See discharge summary
== END 2022-09-26 17:40 | disposition home or self-care (01) ==
LOC: HO.ED 21:58 → HO.EDOVER 22:59 → HO.IMC 23:02
PROVIDERS: Physician Assistant; Admitting Provider Student in an Organized Health Care Education/Training Program; Emergency Provider Emergency Medicine; PCP Internal Medicine; Visit Provider Hospitalist
DX: G43.109 Migraine with aura, not intractable, without status migrainosus (principal); R47.1 Dysarthria and anarthria; R01.1 Cardiac murmur, unspecified; Z20.822 Contact with and (suspected) exposure to COVID-19
CPT/HCPCS: 36415; 70450; 70496; 70498; 70551; 80048; 80061; 80076; 83735; 85025; 85610; 85730; 87635; 93005; 97161; 97165; 99222; 99284; Q9967

== ENCOUNTER → 2022-10-07 13:03 | Outpatient (BNVA) | payer OTHER, SELFPAY | PROVIDERS: PCP Internal Medicine; Visit Provider Internal Medicine | DX: Z13.89 Encounter for screening for other disorder (principal) ==

== ENCOUNTER 2024-12-16 11:39 | Emergency (ER) | payer OTHER, SELFPAY ==
--- NOTE | ~2024-12-16 | CT_ITS ---
EXAMINATION: CT ABDOMEN PELVIS WITH IV CONTRAST HISTORY: RT lower quadrant pain ? appy COMPARISON: There are no prior studies for comparison. TECHNIQUE: CT scan of the abdomen and pelvis was performed following administration of 85 mL Omnipaque 350 using standard departmental protocol. Coronal and sagittal reformatted images were generated and reviewed. Oral contrast material was not administered at the request of the referring physician. This CT exam was performed with one or more of the following dose reduction techniques: automated exposure control, adjustment of the mA and/or kV according to patient size, use of iterative reconstruction technique. DLP: 528 mGy-cm FINDINGS: LOWER CHEST: The visualized lung bases are clear. There is no pleural effusion. CARDIOVASCULATURE: The heart is normal in size. There is no pericardial effusion. LIVER: The liver is normal in size and contour. No liver mass is identified. The hepatic and portal veins are patent. GALLBLADDER / BILE DUCTS: The gallbladder is surgically absent. There is no intra or extrahepatic biliary ductal dilatation. SPLEEN: The spleen is normal in size. There is a 2.4 cm cyst at the upper pole of the spleen anteriorly. PANCREAS: The pancreas is unremarkable in appearance. ADRENAL GLANDS: Within normal limits. KIDNEYS/RETROPERITONEUM: No renal calculi are identified. There is no hydronephrosis. No renal masses are identified. LYMPH NODES: No abdominal or pelvic lymphadenopathy. VASCULATURE: The abdominal aorta is normal in caliber. MESENTERY/PERITONEUM: No free fluid. No masses. There is mild haziness of the fat at the root of the mesentery which is a nonspecific finding. There is no free intraperitoneal gas. STOMACH: The stomach is collapsed, limiting evaluation. SMALL BOWEL: The small bowel is normal in caliber. COLON: The colon is unremarkable. APPENDIX: Normal. URINARY BLADDER/PELVIC ORGANS: The urinary bladder is collapsed, limiting evaluation. The patient is status post hysterectomy. BONES / SOFT TISSUES: No suspicious bony or soft tissue abnormalities. CT/CT abdomen pelvis w IV con IMPRESSION: 1. No CT evidence of acute appendicitis. 2. Mild nonspecific haziness of the fat of the root of the mesentery. Electronically signed by: Freddy Canseco MD 12/16/2024 03:26 PM EDT
[2024-12-16 11:56] VITALS: BP 155/73; PULSE 93; RESP 18; TEMP 36.8; O2SAT 97; BMI 26.2
--- NOTE | 2024-12-16 11:57 | ED_ITS ---
HPI - General Adult General Chief complaint: Abdominal Pain Stated complaint: Lower R abd pain Time Seen by Provider: 12/16/24 13:17 Related Data Home Medications ?Medication ?Instructions ?Recorded ?Confirmed ESTROVERA 1 tab PO DAILY 09/25/22 09/25/22 lactobacillus combination no.4 3 3,000 mmu cells PO DAILY 09/25/22 09/25/22 billion cell capsule (Probiotic) multivitamin 1 tab PO DAILY 09/25/22 09/25/22 Previous Rx's ?Medication ?Instructions ?Recorded topiramate 25 mg capsule 25 mg PO DAILY #30 ea 09/26/22 sprinkle,extended release 24 hr azithromycin 250 mg tablet See Rx Instructions PO .COMPLEX #6 10/07/22 tabs doxycycline hyclate 100 mg tablet 100 mg PO DAILY malaria 90 days 10/07/22 #90 tabs typhoid vaccin,live,attenuated 2 1 cap PO Q OTHER DAY 4 doses #4 10/07/22 billion unit capsule,delayed caps release Allergies Allergy/AdvReac Type Severity Reaction Status Date / Time No Known Allergies Allergy Verified 12/16/24 11:58 PMFSH Past Medical History Medical History Malaria Hyperlipidemia Social History Social History Household Members: Spouse Housing: House Do you presently have visiting nurse or other home services: No Alcohol intake: never Patient Tobacco Use Status: Never used Tobacco Smoked in Last 30 Days: No Use of substances other than those prescribed or required for medical reasons: No Advance Directives: No Advance Directives Information Provided: Yes Patient : No service: No Current occupational status: employed Physical Exam ED Vital Signs: BMI result Body Mass Index 26.2 Course Course Course Narrative: RME, this is a rapid medical exam performed by Donny Kimble please refer to primary provider for complete H&P- 59-year-old female presents for evaluation of right lower abdominal pain. She reports that she had some right back and flank pain since Friday which was at its worst last night before slowly improving. Her pain is currently a 3/10. She reports associated diarrhea, denies any fevers or difficulty urinating. Plan for labs, urinalysis. Will defer any potential advanced imaging to primary ER provider Medications Administered Discontinued Medications Generic Name Dose Route Start Last Admin Trade Name Angi PRN Reason Stop Dose Admin Iohexol 100 ml 12/16/24 15:06 12/16/24 15:06 Iohexol 350 Mg/Ml 100 Ml Infus..Btl IV 12/16/24 15:07 85 ml ONCE ONE Administration Medical Decision Making Lab Data 12/16/24 12:31 12/16/24 12:31 Labs: Lab Results 12/16/24 12/16/24 Range/Units 12:31 12:34 WBC 6.4 (4.8-10.8) X10*3/uL RBC 4.25 (4.20-5.50) X10*6/uL Hgb 13.0 (12.0-16.0) g/dl Hct 39.4 (37.0-47.0) % MCV 92.7 (80.0-98.0) fL MCH 30.6 (27.0-33.0) pg MCHC 33.0 (31.0-35.0) g/dl RDW 13.3 (11.0-16.0) % Plt Count 227 (160-400) X10*3/uL MPV 9.1 L (9.4-12.3) fL Immature Gran % (Auto) 0.3 (0.0-0.4) % Neut % (Auto) 60.0 (45-73) % Lymph % (Auto) 28.8 (20-40) % [place] % (Auto) 8.2 (2-11) % Eos % (Auto) 2.2 (0-4) % Baso % (Auto) 0.5 (0-2) % Lymph # (Auto) 1.8 (1.2-4.9) X10*3/uL [place] # (Auto) 0.5 (0.1-1.2) X10*3/uL Eos # (Auto) 0.1 (0.0-0.4) X10*3/uL Baso # (Auto) 0.0 (0.0-0.2) X10*3/uL Abs Immat Gran (auto) 0.02 (0.00-0.03) X10*3/uL Absolute Neuts (auto) 3.8 (2.0-8.3) x10*3/uL Absolute Nucleated RBC 0.000 (0.0-0.012) X10*3/uL Nucleated RBC % (auto) 0.0 (0.0-0.2) /100WBC Sodium 140 (135-145) mmol/L Potassium 4.7 (3.3-5.1) mmol/L Chloride 107 (96-108) mmol/L Carbon Dioxide 26 (22-29) mmol/L Anion Gap 12 (12-20) BUN 19 H (9-16) mg/dL Creatinine 0.76 (0.5-1.4) mg/dL Estim Creat Clear Calc 74.1 Estimated GFR > 60 Random Glucose 96 (60-115) mg/dL Calcium 9.5 (8.4-10.2) mg/dL Total Bilirubin 0.4 (0.0-1.0) mg/dL AST 22 (5-31) U/L ALT 31 (0-31) U/L Alkaline Phosphatase 62 (39-117) U/L Total Protein 6.9 (6.5-8.0) g/dL Albumin 4.1 (3.5-5.0) g/dL Lipase 82 H (8-78) U/L Urine Color Yellow Urine Appearance Clear Urine pH 6.0 (5.0-9.0) Ur Specific [place] 1.015 (1.005-1.025) Urine Protein Negative (Neg-Trace) mg/dL Urine Glucose (UA) Negative (Negative) mg/dL Urine Ketones Negative (Negative) mg/dL Urine Blood Negative (Negative) Urine Nitrite Negative (Negative) Ur Leukocyte Esterase Trace H (Negative) Urine RBC 0-2 (0-2) /HPF Urine WBC 0-5 (0-5) /HPF Ur Squamous Epith Cells 3-5 (0-2) /HPF Urine Bacteria Trace (None Seen) Hyaline Casts 0-2 (0-2) /LPF Discharge Plan Discharge Clinical Impression: Abdominal pain Patient Disposition: Home, Self-Care Instructions: Abdominal Pain (ED) Additional Instructions: Follow-up with your primary care physician stay on clear liquid diet for 24 hour, your CAT scan shows no evidence of appendicitis no kidney stone Prescriptions: No Action multivitamin Tablet 1 tab PO DAILY Probiotic 3 billion cell Capsule 3,000 mmu cells PO DAILY Rx Instructions: administer with a meal ESTROVERA 1 tab PO DAILY topiramate 25 mg capsule,sprinkle,ER 24hr 25 mg PO DAILY Qty: 30 0RF Rx Instructions: Take one pill daily for first 7 days, then take 2 pills daily for migraine headache prophylaxis typhoid vaccin,live,attenuated 2 billion unit capsule,delayed release(DR/EC) 1 cap PO Q OTHER DAY Qty: 4 0RF Rx Instructions: administer 1 hour before a meal with a cold or luke-warm drink doxycycline hyclate 100 mg tablet 100 mg PO DAILY 90 Days Qty: 90 0RF Rx Instructions: start two days before travel and daily during and for four weeks after trip to [facility] do not use with typhoid tabs azithromycin 250 mg tablet See Rx Instructions PO .COMPLEX Qty: 6 0RF Rx Instructions: For 250 mg dose pack: take 500 mg today (day 1), then 250 mg for 4 days (days 2-5) PO do not use with typhoid vaccine Referrals: Gilbert Carreon MD [Primary Care Provider] - 2 days Interventions: ED Discharge Assessment Last Done: 12/16/24 16:36 Discharge Date/Time: 12/16/24 16:37 Print Language: Belarusian
[2024-12-16 12:41] LABS: MANUAL DIFF FLAG NO
[2024-12-16 12:42] LABS: Basophils Percent Auto 0.5 % (0-2); Eosinophils Absolute Auto 0.1 X10*3/uL (0.0-0.4); Eosinophils Percent Auto 2.2 % (0-4); Hematocrit 39.4 % (37.0-47.0); Imm Gran Abs Auto 0.02 X10*3/uL (0.00-0.03); Imm Gran Pct Auto 0.3 % (0.0-0.4); Lymphocytes Absolute Auto 1.8 X10*3/uL (1.2-4.9); Lymphocytes Percent Auto 28.8 % (20-40); Mean Corpuscular Hemoglobin 30.6 pg (27.0-33.0); Mean Corpuscular Volume 92.7 fL (80.0-98.0); Mean Platelet Volume 9.1 fL (9.4-12.3); Monocytes Absolute Auto 0.5 X10*3/uL (0.1-1.2); Monocytes Percent Auto 8.2 % (2-11); Neutrophils Absolute Auto 3.8 x10*3/uL (2.0-8.3); Platelet Count 227 X10*3/uL (160-400); Red Blood Count 4.25 X10*6/uL (4.20-5.50); Red Cell Distribution Width 13.3 % (11.0-16.0); White Blood Count 6.4 X10*3/uL (4.8-10.8)
[2024-12-16 12:43] LABS: Appearance Urine Clear; Color Urine Yellow; Glucose Urine UA Negative (Negative); Leukocyte Esterase Urine Trace (Negative); Nitrite Urine Negative (Negative); Specific Gravity - Urine 1.015 (1.005-1.025); UMIC TRIGGER UACC YES; Urine Blood Negative (Negative); Urine Ketones Negative (Negative); Urine Protein Negative (Neg-Trace)
[2024-12-16 12:46] LABS: Bacteria Urine Trace (None Seen); Hyaline Casts Urine 0-2 /LPF (0-2); RBC Urine 0-2 /HPF (0-2); WBC Urine 0-5 /HPF (0-5)
[2024-12-16 12:59] LABS: Alanine Aminotransferase 31 U/L (0-31); Albumin Level 4.1 g/dL (3.5-5.0); Alkaline Phosphatase 62 U/L (39-117); Anion Gap 12 (12-20); Aspartate Amino Transferase 22 U/L (5-31); Bilirubin Total 0.4 mg/dL (0.0-1.0); Blood Urea Nitrogen 19 mg/dL (9-16); Calcium 9.5 mg/dL (8.4-10.2); Carbon Dioxide 26 mmol/L (22-29); Chloride 107 mmol/L (96-108); Creatinine Clr Calc Pharmacy 74.1; Estimated Glomerular Filt Rate > 60; Glucose Random 96 mg/dL (60-115); Lipase 82 U/L (8-78); Potassium 4.7 mmol/L (3.3-5.1); Sodium 140 mmol/L (135-145); Total Protein 6.9 g/dL (6.5-8.0)
[2024-12-16 13:17] VITALS: BP 127/59; PULSE 71; RESP 16; TEMP 36.9; O2SAT 98
--- NOTE | 2024-12-16 13:24 | ED.ABDPAIN ---
HPI - Abdominal Pain General Chief Complaint: Abdominal Pain Stated Complaint: Lower R abd pain Time Seen by Provider: 12/16/24 13:17 Source: patient Mode of arrival: ambulatory Limitations: no limitations History of Present Illness HPI narrative: This is a 59 years old the patient presented to the emergency department complaining of right lower quadrant abdominal pain since Friday night. MD elicited complaint: abdominal pain Pertinent past history: none Pain Consistency: constant Location: RLQ Severity: moderate Quality: cramping Radiation: RLQ Migration to: no migration Exacerbating factors: nothing Relieving factors: nothing Associated symptoms: denies other symptoms Related Data Home Medications ?Medication ?Instructions ?Recorded ?Confirmed ESTROVERA 1 tab PO DAILY 09/25/22 09/25/22 lactobacillus combination no.4 3 3,000 mmu cells PO DAILY 09/25/22 09/25/22 billion cell capsule (Probiotic) multivitamin 1 tab PO DAILY 09/25/22 09/25/22 Previous Rx's ?Medication ?Instructions ?Recorded topiramate 25 mg capsule 25 mg PO DAILY #30 ea 09/26/22 sprinkle,extended release 24 hr azithromycin 250 mg tablet See Rx Instructions PO .COMPLEX #6 10/07/22 tabs doxycycline hyclate 100 mg tablet 100 mg PO DAILY malaria 90 days 10/07/22 #90 tabs typhoid vaccin,live,attenuated 2 1 cap PO Q OTHER DAY 4 doses #4 10/07/22 billion unit capsule,delayed caps release Allergies Allergy/AdvReac Type Severity Reaction Status Date / Time No Known Allergies Allergy Verified 12/16/24 11:58 Review of Systems Constitutional: Reports no additional constitutional complaints Reports system reviewed and no additional complaints, except as documented Cardiovascular: Reports no additional cardiovascular complaints Reports system reviewed and no additional complaints, except as documented PMFSH Past Medical History PMFSH Narrative: Patient denies any major medical problems denies any prior abdominal surgery Medical History Malaria Hyperlipidemia Social History Social History Household Members: Spouse Housing: House Do you presently have visiting nurse or other home services: No Alcohol intake: never Patient Tobacco Use Status: Never used Tobacco Advance Directives: No Advance Directives Information Provided: Yes service: No Current occupational status: employed Physical Exam ED Vital Signs: Vital Signs - 24 hr 12/16/24 11:56 12/16/24 13:17 12/16/24 15:37 Temperature 98.2 F 98.5 F 98.2 F Pulse Rate 93 71 70 Respiratory Rate 18 16 20 Blood Pressure 155/73 H 127/59 L 119/53 L Pulse Oximetry 97 98 97 Oxygen Delivery Method Room Air Room Air Room Air BMI result Body Mass Index 26.2 No acute distress she is comfortable in the stretcher reading a book Const General: cooperative Nutritional Appearance: well nourished Orientation/consciousness: patient oriented x3 HENMT Head: Yes normal to inspection General nose exam: Normal external nose present Face and sinus: Yes normal facial exam Mouth: Normal oral and palatal mucosa present Throat: Yes posterior oropharynx normal Neck Neck: Yes normal visual inspection and Yes full ROM Chest Chest palpation & inspection: normal inspection of the chest Resp Effort & Inspection: normal respiratory effort Auscultation: clear to auscultation bilaterally Cardio Jugular venous distension: no JVD Rate: regular rate Rhythm: regular rhythm GI Inspection: Yes normal to inspection Palpation (GI): Tenderness to palpation present (GI) in the RLQ Auscultation: normal bowel sounds General: Yes no CVA tenderness Back/Spine/Pelvis Back: no CVA tenderness Skin General skin exam: no rashes or lesions noted and elasticity normal Neuro General: patient oriented x3 Course Reevaluation(s) Reevaluation #1: CT resulted no appendicitis no bowel obstruction no bowel pathology she is feeling better at this time she can be discharged home follow-up with the PCP Time: 15:45 Medical Decision Making Medical Decision Making [facility] Narrative: Patient is here with a right lower quadrant abdominal pain we will obtain labs imaging Differential Diagnosis Differential Diagnoses: The differential diagnosis associated with the presentation includes Differential diagnosis is acute appendicitis/colitis/diverticulitis Admission/Observation Consideration of admission/observation: Escalation of care including admission/observation considered Lab Data [facility] [place] Lab Attestation statement: I reviewed the patient's lab results. 12/16/24 12:31 12/16/24 12:31 Labs: Lab Results 12/16/24 12/16/24 Range/Units 12:31 12:34 WBC 6.4 (4.8-10.8) X10*3/uL RBC 4.25 (4.20-5.50) X10*6/uL Hgb 13.0 (12.0-16.0) g/dl Hct 39.4 (37.0-47.0) % MCV 92.7 (80.0-98.0) fL MCH 30.6 (27.0-33.0) pg MCHC 33.0 (31.0-35.0) g/dl RDW 13.3 (11.0-16.0) % Plt Count 227 (160-400) X10*3/uL MPV 9.1 L (9.4-12.3) fL Immature Gran % (Auto) 0.3 (0.0-0.4) % Neut % (Auto) 60.0 (45-73) % Lymph % (Auto) 28.8 (20-40) % [place] % (Auto) 8.2 (2-11) % Eos % (Auto) 2.2 (0-4) % Baso % (Auto) 0.5 (0-2) % Lymph # (Auto) 1.8 (1.2-4.9) X10*3/uL [place] # (Auto) 0.5 (0.1-1.2) X10*3/uL Eos # (Auto) 0.1 (0.0-0.4) X10*3/uL Baso # (Auto) 0.0 (0.0-0.2) X10*3/uL Abs Immat Gran (auto) 0.02 (0.00-0.03) X10*3/uL Absolute Neuts (auto) 3.8 (2.0-8.3) x10*3/uL Absolute Nucleated RBC 0.000 (0.0-0.012) X10*3/uL Nucleated RBC % (auto) 0.0 (0.0-0.2) /100WBC Sodium 140 (135-145) mmol/L Potassium 4.7 (3.3-5.1) mmol/L Chloride 107 (96-108) mmol/L Carbon Dioxide 26 (22-29) mmol/L Anion Gap 12 (12-20) BUN 19 H (9-16) mg/dL Creatinine 0.76 (0.5-1.4) mg/dL Estim Creat Clear Calc 74.1 Estimated GFR > 60 Random Glucose 96 (60-115) mg/dL Calcium 9.5 (8.4-10.2) mg/dL Total Bilirubin 0.4 (0.0-1.0) mg/dL AST 22 (5-31) U/L ALT 31 (0-31) U/L Alkaline Phosphatase 62 (39-117) U/L Total Protein 6.9 (6.5-8.0) g/dL Albumin 4.1 (3.5-5.0) g/dL Lipase 82 H (8-78) U/L Urine Color Yellow Urine Appearance Clear Urine pH 6.0 (5.0-9.0) Ur Specific [place] 1.015 (1.005-1.025) Urine Protein Negative (Neg-Trace) mg/dL Urine Glucose (UA) Negative (Negative) mg/dL Urine Ketones Negative (Negative) mg/dL Urine Blood Negative (Negative) Urine Nitrite Negative (Negative) Ur Leukocyte Esterase Trace H (Negative) Urine RBC 0-2 (0-2) /HPF Urine WBC 0-5 (0-5) /HPF Ur Squamous Epith Cells 3-5 (0-2) /HPF Urine Bacteria Trace (None Seen) Hyaline Casts 0-2 (0-2) /LPF Independent Interpretation I performed an independent interpretation of an: CT Scan Interpretation: No acute pathology Radiology Impression Discussion of test interpretation with radiology: I have reviewed the radiologist's reading. Radiologist Impression: No appendicitis Medications Administered Discontinued Medications Generic Name Dose Route Start Last Admin Trade Name Freq PRN Reason Stop Dose Admin Iohexol 100 ml 12/16/24 15:06 12/16/24 15:06 Iohexol 350 Mg/Ml 100 Ml Infus..Btl IV 12/16/24 15:07 85 ml ONCE ONE Administration Discharge Plan Discharge Clinical Impression: Abdominal pain Qualifiers: Abdominal location: right lower quadrant Qualified Code(s): R10.31 - Right lower quadrant pain Patient Disposition: Home, Self-Care Instructions: Abdominal Pain (ED) Additional Instructions: Follow-up with your primary care physician stay on clear liquid diet for 24 hour, your CAT scan shows no evidence of appendicitis no kidney stone Prescriptions: No Action multivitamin Tablet 1 tab PO DAILY Probiotic 3 billion cell Capsule 3,000 mmu cells PO DAILY Rx Instructions: administer with a meal ESTROVERA 1 tab PO DAILY topiramate 25 mg capsule,sprinkle,ER 24hr 25 mg PO DAILY Qty: 30 0RF Rx Instructions: Take one pill daily for first 7 days, then take 2 pills daily for migraine headache prophylaxis typhoid vaccin,live,attenuated 2 billion unit capsule,delayed release(DR/EC) 1 cap PO Q OTHER DAY Qty: 4 0RF Rx Instructions: administer 1 hour before a meal with a cold or luke-warm drink doxycycline hyclate 100 mg tablet 100 mg PO DAILY 90 Days Qty: 90 0RF Rx Instructions: start two days before travel and daily during and for four weeks after trip to [place] do not use with typhoid tabs azithromycin 250 mg tablet See Rx Instructions PO .COMPLEX Qty: 6 0RF Rx Instructions: For 250 mg dose pack: take 500 mg today (day 1), then 250 mg for 4 days (days 2-5) PO do not use with typhoid vaccine Referrals: Gilbert Carreon MD [Primary Care Provider] - 2 days Print Language: Macedonian
--- OUTSIDE RECORDS SUMMARY | 2024-12-16 14:03 | XMS_ITS | Clinical Summary ---
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 Active atorvastatin (LIPITOR) 10 mg tablet Take 1 tablet (10 mg total) by mouth at bedtime. Active lactobacillus acidoph-l.bulgar 100 million cell granules in packet Take 1 packet by mouth. Active Surgical History Surgery Date Site/Laterality Comments HYSTERECTOMY CHOLECYSTECTOMY Medical History Medical History Date Comments Hyperlipidemia Social History Tobacco Use Types Packs/Day Years Used Date Smoking Tobacco: Never Assessed Interpersonal Safety Answer Date Record ed Physical Abuse 08/13/2024 Verbal Abuse 08/13/2024 Comments No Sex and Gender Information Value Date Recorded Sex Assigned at Female 08/12/2024 10:25 AM EST Legal Sex Female 11:14 AM EDT Gender Identity Female 08/12/2024 10:25 AM EST Sexual Orientation Straight 08/12/2024 10 :25 AM EST Obstetrics History Last Filed Vital Signs Vital Sign Reading Time Taken Comments Blood Pressure 114/64 08/13/2024 11:07 AM EST Pulse 80 08/13/2024 11:07 AM EST Temperature 36.8 ??C (98.3 ??F) 08/13/2024 10:[address] Respiratory Rate 16 08/13/2024 11:07 AM EST Oxygen Saturation 98% 08/13/2024 11:07 AM EST Inhaled Oxygen Concentration - - Weight 64.9 kg (143 lb) 08/13/2024 10:01 AM EST Height 160 cm (5' 3 ) 08/13/2024 10:01 AM EST Body Mass Index 25.33 08/13/2024 10:01 AM EST Plan of Treatment Health Maintenance Due Date Last Done Comments Breast Cancer Screening 1965 Cervical Cancer Screening: Pap Smear 1987 Pneumococcal Vaccine: 50+ Years (1 of 1 - PCV) 2016 COVID-19 Vaccine (2023- season) 2024 01/13/2021, 01/03/2021, 12/26/2020, Additional history exists Cholesterol Screening (Lipid Panel) 05/30/2024 Depression Screening 05/30/2024 HIV Screening 05/30/2024 Hepatitis C Screening 05/30/2024 Social Influencers of Health Screening 05/30/2024 DTaP,Tdap,and Td Vaccines (2 - Td or Tdap) 08/06/2028 08/06/2018 Colorectal Cancer Screening: Colonoscopy 08/13/2034 08/13/2024 Hepatitis A Vaccines Aged Out 02/17/2019, 09/08/2018, 08/06/2018 No longer eligible based on patient's age to complete this topic Hepatitis B Vaccines Completed 02/17/2019, 09/08/2018, 08/06/2018 Zoster Vaccines Completed 09/23/2021, 06/08/2021 Influenza Vaccine Completed 05/03/2024, , 05/06/2022, Additional history exists HIB Vaccines Aged Out No longer eligi ble based on patient's age to complete this topic HPV Vaccines Aged Out No longer eligi ble based on patient's age to complete this topic IPV Vaccines Aged Out No longer eligi ble based on patient's age to complete this topic MMR Vaccines Aged Out No longer eligi ble based on patient's age to complete this topic Meningococcal ACWY Vaccine Aged Out N o longer eligible based on patient's age to complete this topic Meningococcal B Vaccine Aged Out No l onger eligible based on patient's age to complete this topic Pneumococcal Vaccine: Pediatrics (0 to 5 Years) and At-Risk Patients (6 to 64 Years) Aged Out No longer eligible based on patient's age to complete this topic RSV Immunization Patients Under 20 months Aged Out No longer eligible based on patient's age to complete this topic Varicella Vaccines Aged Out No longer eligible based on patient's age to complete this topic Procedures Procedure Name Priority Date/Time Associated Diagnosis Comments COLONOSCOPY Routine 08/13/2024 10:46 AM EST Family history of colonic polyps from Last 3 Months or Most Recently Relevant to Health Maintenance Results * COLONOSCOPY Sedation; [facility] ENDOSCOPY (08/13/2024 10:46 AM EST) Anatomical Region Laterality Modality Endoscopy 08/13/2024 10:2 8 AM EST Impressions 08/13/2024 10:46 AM EST - The entire examined colon is normal on direct and ? retroflexion views. ? - No specimens collected. Recommendation: ?- Discharge patient to home. ? - Resume previous diet. ? - Continue present medications. ? - Repeat colonoscopy in 5 years for surveillance. ? - Return to GI office PRN. Narrative 08/13/2024 10:46 AM EST [facility] GI Patient Name: Doroteo Guerrero Procedure Date: 08/13/2024 10:28 AM Date of : 1965 Age: 58 Room: ROOM 15 Gender: Female Note Status: Finalized Attending MD: Shailesh Tillman MD, Procedure Date No Time: 08/13/2024 Procedure: ? Colonoscopy Indications: ? Colon cancer screening in patient at increased risk: ? Family history of colon polyps in multiple 1st-degree ? relatives Providers: ? Shailesh Tillman MD Referring MD: ?Shailesh Tillman MD Medicines: ? Monitored Anesthesia Care Complications: ? No immediate complications. Estimated Blood Loss: ? Estimated blood loss: none. Procedure: ? Pre-Anesthesia Assessment: ? - ASA Grade Assessment: II - A patient with mild ? systemic disease. ? - After reviewing the risks and benefits, the patient ? was deemed in satisfactory condition to undergo the ? procedure. ? After I obtained informed consent, the scope was ? passed under direct vision. Throughout the procedure, ? the patient's blood pressure, pulse, and oxygen ? saturations were monitored continuously.The ? Colonoscope was introduced through the anus and ? advanced to the cecum, identified by appendiceal ? orifice and ileocecal valve. The colonoscopy was ? performed without difficulty. The patient tolerated ? the procedure well. The quality of the bowel ? preparation was good. Anatomical landmarks were ? photographed. Findings: ?The entire examined colon appeared normal on direct ? and retroflexion views. Procedure Code(s): ? --- Professional --- ? G0105, Colorectal cancer screening; colonoscopy on ? individual at high risk Diagnosis Code(s): ? --- Professional --- ? Z83.71, Family history of colonic polyps CPT copyright 2020 [employer]. All rights reserved. The codes documented in this report are preliminary and upon fruit ii farmworker review may be revised to meet current compliance requirements. Shailesh Tillman MD 08/13/2024 10:46:52 AM This report has been signed electronically.Shailesh Tillman MD Number of Addenda: 0 Note Initiated On: 08/13/2024 10:28 AM Scope In: Scope Out: ? Endoscopy Department at [facility] - [address] [place] [address], ? [place] [address] Procedure Note Shailesh Tillman MD - 08/13/2024 [facility] GI Patient Name: Doroteo Guerrero Procedure Date: 08/13/2024 10:28 AM Date of : 1965 Age: 58 Room: ROOM 15 Gender: Female Note Status: Finalized Attending MD: Shailesh Tillman MD, Procedure Date No Time: 08/13/2024 Procedure: Colonoscopy Indications: Colon cancer screening in patient at increasedrisk: Family history of colon polyps in [id number] relatives Providers: Shailesh Tillman MD Referring MD: Shailesh Tillman MD Medicines: Monitored Anesthesia Care Complications: No immediate complications. Estimated Blood Loss: Estimated blood loss: none. Procedure: Pre-Anesthesia Assessment: - ASA Grade Assessment: II - A patient with mild systemic disease. - After reviewing the risks and benefits, thepatient was deemed in satisfactory condition to undergo the procedure. After I obtained informed consent, the scope was passed under direct vision. Throughout theprocedure, the patient's blood pressure, pulse, and oxygen saturations were monitored continuously.The Colonoscope was introduced through the anus and advanced to the cecum, identified by appendiceal orifice and ileocecal valve. The colonoscopy was performed without difficulty. The patient tolerated the procedure well. The quality of the bowel preparation was good. Anatomical landmarks were photographed. Findings: The entire examined colon appeared normal on direct and retroflexion views. Procedure Code(s): --- Professional --- G0105, Colorectal cancer screening; colonoscopy on individual at high risk Diagnosis Code(s): --- Professional --- Z83.71, Family history of colonic polyps CPT copyright 2020 [employer]. All rights reserved. The codes documented in this report are preliminary and upon fruit ii farmworker reviewmay be revised to meet current compliance requirements. Shailesh Tillman MD 08/13/2024 10:46:52 AM This report has been signed electronically.Shailesh Tillman MD Number of Addenda: 0 Note Initiated On: 08/13/2024 10:28 AM Scope In: Scope Out: Endoscopy Department at [facility] - [address] [place] [id number] IMPRESSION: - The entire examined colon is normal on direct and retroflexion views. - No specimens collected. Recommendation: - Discharge patient to home. - Resume previous diet. - Continue present medications. - Repeat colonoscopy in 5 years for surveillance. - Return to GI office PRN. Shailesh Tillman MD GI~PROCEDURE ORDERABLES Final Result from Last 3 Months or Most Recently Relevant to Health Maintenance Insurance [employer] Care Teams [employer] Cart Repairer Relationship Specialty Start Date End Date Gilbert Carreon MD [address] [place] [id number] PCP - General Internal Medicine 08/12/24
[2024-12-16] MEDS: iohexoL 350 MG/ML 100 ML INFUS..BTL IV (15:06)
[2024-12-16 15:37] VITALS: BP 119/53; PULSE 70; RESP 20; TEMP 36.8; O2SAT 97
[2024-12-16 16:36] VITALS: BP 119/53; PULSE 70; RESP 20; TEMP 36.8; O2SAT 97
== END 2024-12-16 16:37 | disposition home or self-care (01) ==
PROVIDERS: Physician Assistant; Emergency Provider Emergency Medicine; PCP Internal Medicine
DX: R10.31 Right lower quadrant pain (principal); M54.9 Dorsalgia, unspecified; R10.9 Unspecified abdominal pain
CPT/HCPCS: 36415; 74177; 80053; 81001; 83690; 85025; 99284; Q9967

== ENCOUNTER → 2024-12-16 13:19 | Outpatient (BNV) | payer OTHER, SELFPAY | PROVIDERS: Emergency Provider Emergency Medicine; PCP Internal Medicine; Visit Provider Radiology Diagnostic Radiology | DX: R10.31 Right lower quadrant pain (principal) | CPT/HCPCS: 74177 ==